=== PATIENT | male | born 1985 | race Caucasian/White ===

== ENCOUNTER 2020-02-04 11:26 | Emergency (ER) | payer BC, SELFPAY ==
[~2020-02-04] VITALS: Ht 170.2 cm; Wt 72.6 kg
[2020-02-04 11:34] VITALS: BP 135/77
--- NOTE | 2020-02-04 11:37 | NUR ---
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 PT DENIES ANY S/S. VSS,EUPNIC,AMBULATORY,A/OX4. PER PT SENT BY [facility] [employer] TO GET COVID TESTED. PT ON TENT NO HX
--- NOTE | 2020-02-04 11:56 | NUR ---
COVID SWAB DONE TAKEN TO LAB
[2020-02-04 12:13] VITALS: BP 130/72
--- NOTE | 2020-02-04 12:13 | NUR ---
Patient discharged with v/s stable. Written and verbal after care instructions given and explained. Patient verbalized understanding. Ambulatory with steady gait. All questions addressed prior to discharge. Advised to follow up with PMD.
== END 2020-02-04 12:13 | disposition home or self-care (01) ==
LOC: MED 11:26
DX: Z20.828 Contact with and (suspected) exposure to other viral communicable diseases (principal)
CPT/HCPCS: 99283; U0003

== ENCOUNTER 2020-03-21 08:23 | Outpatient (CLI) | payer OTHER ==
[2020-03-21 08:46] LABS: BASOPHILS % (AUTO) 0.5 % (0.0-2.0); EOSINOPHILS # (AUTO) 0.1 K/uL (0-0.4); EOSINOPHILS % (AUTO) 1.7 % (0.0-4.0); HEMATOCRIT 44.4 % (36-52); HEMOGLOBIN 15.2 g/dL (12.0-18.0); LYMPHOCYTES # (AUTO) 1.7 K/uL (2.0-11.5); LYMPHOCYTES % (AUTO) 28.8 % (20.5-51.1); MEAN CORPUSCULAR HEMOGLOBIN 29 pg (27-31); MEAN CORPUSCULAR HGB CONC 34 g/dL (33-37); MEAN CORPUSCULAR VOLUME 84.3 fL (80-94); MONOCYTES # (AUTO) 0.4 K/uL (0.8-1.0); MONOCYTES % (AUTO) 7.2 % (1.7-9.3); NEUTROPHILS # (AUTO) 3.6 K/uL (1.8-7.7); NEUTROPHILS % (AUTO) 61.8 % (42.2-75.2); PLATELET COUNT (AUTO) 237 K/uL (140-450); RED BLOOD CELL COUNT(AUTO) 5.27 MIL/uL (4.20-6.10); RED CELL DISTRIBUTION WIDTH 12.6 % (11.6-13.7); WHITE BLOOD COUNT (AUTO) 5.8 K/uL (4.8-10.8)
[2020-03-21 08:47] LABS: APPEARANCE,URINE CLEAR (CLEAR); BILIRUBIN,URINE NEGATIVE (NEGATIVE); BLOOD, URINE NEGATIVE (NEGATIVE); COLOR,URINE YELLOW (YELLOW); LEUKOCYTE ESTERASE ,URINE NEGATIVE (NEGATIVE); NITRITE, URINE NEGATIVE (NEGATIVE); PH,URINE 6.5 (5.0-9.0); UGLUCOSE NEGATIVE (NEGATIVE)
[2020-03-21 09:08] LABS: ALBUMIN 4.4 g/dL (3.4-5.0); ANION GAP 15.6 (8-16); CARBON DIOXIDE 22.3 mmol/L (21-32); CHOL/HDL RATIO 3.7 (1-4.5); CREATININE 0.9 mg/dL (0.6-1.3); POTASSIUM 3.9 mmol/L (3.5-5.1); THYROID STIMULATING HORMONE 2.74 uIU/mL (0.34-3.74); TOTAL BILIRUBIN 0.6 mg/dL (0.0-1.0)
[2020-03-22 07:35] LABS: T4 (THYROXINE) 4.6 ug/dL (4.5-12.0)
== END 2020-03-21 20:28 | disposition home or self-care (01) ==
LOC: MLB 08:23
PROVIDERS: ATTEND Internal Medicine
DX: Z00.00 Encounter for general adult medical examination without abnormal findings (principal); K90.41 Non-celiac gluten sensitivity; Z12.39 Encounter for other screening for malignant neoplasm of breast; Z13.220 Encounter for screening for lipoid disorders
CPT/HCPCS: 36415; 80053; 81003; 82043; 83036; 83516; 84436; 84443; 84480; 85025